=== PATIENT | male | born 1995 | race Caucasian/White ===

== ENCOUNTER → 2021-07-21 | Outpatient (CLI) | payer BC | LOC: EMI 14:06 | DX: Q07.00 Arnold-Chiari syndrome without spina bifida or hydrocephalus (principal); R09.89 Other specified symptoms and signs involving the circulatory and respiratory systems; R90.89 Other abnormal findings on diagnostic imaging of central nervous system | CPT/HCPCS: 70553; A9577 ==

== ENCOUNTER → 2021-07-23 | Outpatient (CLI) | payer BC | LOC: KOH-I 08:25 | DX: R10.9 Unspecified abdominal pain (principal); Q63.2 Ectopic kidney; Q43.3 Congenital malformations of intestinal fixation | CPT/HCPCS: 74176 ==

== ENCOUNTER 2021-08-21 16:40 | Emergency (ER) | payer BC ==
[2021-08-21] MEDS ORDERED: BACTRIM DS TAB1 EACH PO (20:23)
[2021-08-21] MEDS ORDERED: IBUPROFEN800 MG PO (20:23)
== END 2021-08-21 20:30 | disposition home or self-care (01) ==
LOC: ER1 16:40
DX: S60.121A Contusion of right index finger with damage to nail, initial encounter (principal); L03.011 Cellulitis of right finger; F17.220 Nicotine dependence, chewing tobacco, uncomplicated; I10 Essential (primary) hypertension; Z88.0 Allergy status to penicillin; W22.8XXA Striking against or struck by other objects, initial encounter
CPT/HCPCS: 11740; 73130; 99283